=== PATIENT | female | born 1995 | race Hispanic/Latino ===

== ENCOUNTER 2024-01-24 21:34 | Emergency (ER) | payer MEDICAID ==
[~2024-01-24] VITALS: Ht 160 cm; Wt 85.7 kg
[2024-01-24 21:46] LABS: BASOPHILS # (AUTO) 0.08 K/uL (0.00-0.20); BASOPHILS % (AUTO) 0.8 % (0.0-5.0); EOSINOPHILS # (AUTO) 0.19 K/uL (0.00-0.70); EOSINOPHILS % (AUTO) 1.9 % (0.0-8.0); IMMATURE GRANULOCYTE ABSOLUTE 0.08 K/uL (0-1); LYMPHOCYTES # (AUTO) 2.9 K/uL (1.0-4.8); LYMPHOCYTES % (AUTO) 28.7 % (21.0-51.0); MEAN CORPUSCULAR HEMOGLOBIN 32.2 pg (27.0-33.0); MEAN CORPUSCULAR HGB CONC 33.2 g/dL (32.0-36.0); MEAN CORPUSCULAR VOLUME 96.9 fL (79-99); MONOCYTES # (AUTO) 0.5 K/uL (0.1-1.0); MONOCYTES % (AUTO) 5.1 % (3.0-13.0); NEUTROPHILS # (AUTO) 6.4 K/uL (1.8-7.7); NEUTROPHILS % (AUTO) 62.7 % (40.0-77.0); PLATELET COUNT (AUTO) 184 K/uL (130-400); RED BLOOD CELL COUNT(AUTO) 4.23 MIL/uL (4.00-5.50); RED CELL DISTRIBUTION WIDTH 12.7 % (11.0-15.5); WHITE BLOOD COUNT (AUTO) 10.2 K/uL (4.8-10.8)
[2024-01-24 21:58] LABS: CREATININE 0.8 mg/dL (0.5-1.0)
--- NOTE | 2024-01-24 23:00 | ERN ---
General Chief Complaint: Chest Pain Stated Complaint: CHEST PAIN Time Seen by MD: 21:37 Source: patient History of Present Illness Initial Comments In his a 28-year-old female coming in to be evaluated for chest pressure. Patient states that the chest pressure has been on and off since she was discharged in the hospital couple of days ago. She states that she is her new and has not been able to rest completely. She also states he was concerned because they advised her at hospital before she was discharged that if she had any chest pain to follow up at the nearest ER for evaluation of preeclampsia. Patient is not having any headaches or pedal edema or any other complaints besides chest pressure that presents on and off every 20-30 minutes. Allergies: Coded Allergies: No Known Allergies (Unverified Allergy, Unknown, 01/24/24) Past Medical History Past Medical History: No Pertinent History Past Surgical History: None ROS Dictation CONSTITUTIONAL: No chills, no fever, no weakness, no diaphoresis, no malaise. HEAD/FACE: No signs of trauma. EENT: No eye pain, no blurred vision, no tearing, no double vision, no ear p ain, no ear discharge, no nose pain, no nasal congestion, no throat pain, no throat swelling, no mouth pain. RESPIRATORY: No cough, no orthopnea, no SOB, no stridor, no wheezing. CARDIOVASCULAR: No chest pain, no edema, no palpitations, no syncope. GASTROINTESTINAL/ABDOMINAL: No abdominal pain, no constipation, no diarrhea, no nausea, no vomiting. GENITOURINARY: No abnormal discharge, no dysuria, no frequent urination, no hematuria. No complaints of pain in the genitals. MUSCULOSKELETAL: No back pain, no gout, no joint pain, no joint swelling, no muscle pain, no muscle stiffness, no neck pain. INTEGUMENTARY: No change in color, no change in hair/nails, no dryness, no lesion, no lumps, no rash. NEUROLOGICAL/PSYCH: No anxiety, not depressed, no emotional problem, no headache, no numbness, no pre-existing deficit, no history of seizures, no tremors, no weakness. HEMATOLOGIC/LYMPHATIC: Not anemic, no history of blood clots, no apparent bleeding, no bruising, glands not swollen. All Systems Negative, Except as Noted. Physical Exam Physical Exam Dictation VITAL SIGNS: Reviewed. GENERAL APPEARANCE: Alert, oriented x3, no acute distress, obese. HEAD AND FACE: Non-traumatic. EYES: PERRL, pink conjunctivas, eyelid no trauma, anterior chamber clear. EARS: Pinnas intact and no signs of trauma or erythema. Ear canals clear and no discharge. TMs no erythema. NOSE: No discharge, no bleeding. OROPHARYNX: Mouth normal, teeth no caries, tongue pink. Pharynx clear, no erythema. Tonsils no exudates, no abscesses noted. Mucous membrane moist. NECK: Supple, non-tender, no thyromegaly, no masses, no JVD, no bruits. BREAST: Deferred. CHEST: No tenderness, no crepitus, no paradoxical movement, no retractions. LUNGS: Clear, well-ventilated, symmetric, no rales, no wheezing, no rhonchi, no stridor, good breath sounds bilaterally. HEART: Regular rate, regular rhythm, no murmur, no gallops. VASCULAR: No peripheral edema. ABDOMEN: Soft, positive bowel sounds, nondistended, no guarding, nontender, no rebound, no masses no hepatomegaly, no splenomegaly, no Christopher's sign, no hernias. RECTAL: Deferred. GENITAL: Deferred. NEUROLOGICAL: Normal speech, gross motor function intact, gross sensory function intact. MUSCULOSKELETAL: Neck nontender, full range of motion, back nontender, full range of motion. EXTREMITIES: Nontender, full range of motion. SKIN: Color pink, dry, no turgor, no rash, no lacerations, no abrasions, no contusions. LYMPHATICS: Deferred. Results Laboratory and Microbiology Lab and Micro Result Laboratory Tests Test 01/24/24 21:40 01/24/24 23:24 White Blood Count 10.2 K/uL (4.8-10.8) Red Blood Count 4.23 MIL/uL (4.00-5.50) Hemoglobin 13.6 g/dL (12.0-16.0) Hematocrit 41.0 % (36-48) Mean Corpuscular Volume 96.9 fL (79-99) Mean Corpuscular Hemoglobin 32.2 pg (27.0-33.0) Mean Corpuscular Hemoglobin Concent 33.2 g/dL (32.0-36.0) Red Cell Distribution Width 12.7 % (11.0-15.5) Platelet Count 184 K/uL (130-400) Mean Platelet Volume 10.2 fL (7.5-10.5) Immature Granulocyte % (Auto) 0.8 % (0-1) Neutrophils (%) (Auto) 62.7 % (40.0-77.0) Lymphocytes (%) (Auto) 28.7 % (21.0-51.0) Monocytes (%) (Auto) 5.1 % (3.0-13.0) Eosinophils (%) (Auto) 1.9 % (0.0-8.0) Basophils (%) (Auto) 0.8 % (0.0-5.0) Neutrophils # (Auto) 6.4 K/uL (1.8-7.7) Lymphocytes # (Auto) 2.9 K/uL (1.0-4.8) Monocytes # (Auto) 0.5 K/uL (0.1-1.0) Eosinophils # (Auto) 0.19 K/uL (0.00-0.70) Basophils # (Auto) 0.08 K/uL (0.00-0.20) Absolute Immature Granulocyte (auto 0.08 K/uL (0-1) Nucleated Red Blood Cells 0.0 % (0.0-0.19) Sodium Level 139 mmol/L (136-145) Potassium Level 4.0 mmol/L (3.5-5.1) Chloride Level 105 mmol/L (101-111) Carbon Dioxide Level 27 mmol/L (21-32) Blood Urea Nitrogen 11 mg/dL (7-18) Creatinine 0.8 mg/dL (0.5-1.0) Glomerular Filtration Rate Calc 102 mL/min (>90) Random Glucose 88 mg/dL (70-105) Total Calcium 9.2 mg/dL (8.5-10.1) Troponin I High Sensitivity 5 ng/L (4-50) Urine HCG, Qualitative NEGATIVE (NEGATIVE) Labs Reviewed?: Yes EKG/XRAY/US/CT/MRI EKG Comment 01/24/2024 time 9:32 p.m. Ventricular rate [address] wave elevation or depression Sinus rhythm X-RAY Comment chest xray- nad MDM MDM: Differential diagnosis: Anxiety, acid reflux, chest pain Rationale: Tests considered and ordered secondary to shared decision making include: Previous outside records reviewed: Old ER visits. Risk of complication and/or morbidity or mortality of patient management: None Medications-Per medication reconciliation Need for hospitalization: Patient does not meet criteria for hospitalization. Need for emergency major/minor surgery: No There are no social concerns with this patient. Prescription drug management Prescriptions will include symptomatic care Patient's prior external medical records from other ER visits were reviewed by me as indicated. Prior testing and results from previous visits were reviewed. Prior tests were taken into account with medical decision making and resource utilization, independent historian/historians were used to obtain complete medical history. I independently interpreted the test that were performed, results were reviewed by me and considered findings on radiology if ordered. Medical management and examination interpretation discussions were had by me with other qualified healthcare professionals as indicated for the patient's care. 28-year-old female coming in to be evaluated for chest pressure. She states that she was educated by nursing staff in labor and delivery floor if she had any chest pressure to come in to be evaluated in the ER as this could be a sign of preeclampsia. Patient was evaluated for chest pain Maalox was given she states her symptoms completely subsided. Patient will be discharged with a diagnosis of anxiousness with acid reflux cardiac workup negative for acute findings. ED Course Orders Procedure Category Date Status Time Cbc With Differential LAB 01/24/24 Complete 21:38 Basic Metabolic Panel LAB 01/24/24 Complete 21:38 Troponin I High LAB 01/24/24 Complete Sensitivity 21:38 ,Urine Test LAB 01/24/24 Complete 21:38 Chest 1vw RAD 01/24/24 Taken 21:38 12 Lead Ekg Tracing- EKG 01/24/24 Logged Technical 21:40 Ondansetron 4mg Inj PHA 01/24/24 Complete (Zofran 4mg Inj) 22:30 Lidocaine Hcl 2% PHA 01/24/24 Complete Viscous (Lidocaine Hcl 22:30 Mag/Alum/Simeth 30ml PHA 01/24/24 Complete (Maalox Plus 30ml) 22:30 Pantoprazole 40mg Inj PHA 01/24/24 Complete (Protonix 40mg Inj 22:30 Current Medications Medications (Trade) Dose Ordered Sig/Neil Route PRN Reason Start Time Stop Time Status Last Admin Dose Admin Al Hydroxide/Mg Hydroxide (MAALox PLUS 30ML) 30 ml ONCE ONCE PO 01/24/24 22:30 01/24/24 22:31 DC 01/24/24 23:10 Lidocaine HCl (Lidocaine HCl 2% Viscous) 10 ml ONCE ONCE PO 01/24/24 22:30 01/24/24 22:31 DC Ondansetron HCl (zoFRAN 4MG INJ) 4 mg ONCE ONCE IVP 01/24/24 22:30 01/24/24 22:31 DC 01/24/24 23:05 Pantoprazole Sodium (PROTonix 40MG INJ) 40 mg ONCE ONCE IVP 01/24/24 22:30 01/24/24 22:31 DC 01/24/24 23:05 Vital Signs Date Time Temp Pulse Resp B/P (MAP) Pulse Ox O2 Delivery O2 Flow Rate FiO2 01/24/24 21:42 98.1 61 14 145/83 99 Room Air* 0 21 01/24/24 21:35 98.4 64 16 148/83 97 Room Air 0 DX & DISP Disposition: Discharge Departure Impression: Primary Impression: Acid reflux Additional Impression: Anxiety Condition: Stable Scripts Pantoprazole Sodium (Protonix) 40 Mg Ectab 40 MG PO DAILY for 30 Days, #30 TAB.EC Prov: REBEKAH GARCIA MD 01/24/24 Additional Instructions: FOLLOW-UP WITH PRIMARY CARE PROVIDER IN 1 TO 2 DAYS. TAKE MEDICATIONS DIRECTED HERE IN THE EMERGENCY ROOM. OKAY TO CONTINUE HOME MEDICATIONS UNLESS OTHERWISE DISCUSSED DURING YOUR VISIT IN THE EMERGENCY ROOM TODAY. RETURN TO YOUR NEAREST EMERGENCY ROOM IF SYMPTOMS WORSEN OR IF THERE IS NO IMPROVEMENT. CALL 911 IF YOU NEED IMMEDIATE ASSISTANCE. TAKE TYLENOL [id number] NEEDED AND IF NO CONTRAINDICATIONS ARE PRESENT. INCREASE ORAL HYDRATION. A WOUND CULTURE OR URINE CULTURE WAS ORDERED HERE IN THE EMERGENCY ROOM DEPARTMENT PLEASE FOLLOW-UP WITH PRIMARY CARE PROVIDER AND ADVISE THEM TO GET REPEAT PORTS FROM OUR FACILITY. IF YOU HAD ANY FRANK WRAP/SPLINTS THAT WERE APPLIED HERE, PLEASE DO NOT REMOVE THEM UNTIL YOU SEE YOUR PRIMARY CARE OR SPECIALTY. Referrals: Referrals: SELF,REFERRAL (PCP) PHYLLIS SHEFFIELD MD Time of Disposition: 23:56 REBEKAH GARCIA MD Jan 24, 2024 23:00
[2024-01-24] MEDS: LIDOCAINE HCL 2% VISCOUS 15 ML UDCUP PO ONE (23:05)
[2024-01-24] MEDS: PANTOPrazole 40 MG/VIAL IVP ONE (23:05)
[2024-01-24] MEDS: MAG/ALUM/SIMETH 30 ML UDCUP PO ONE (23:05)
[2024-01-24] MEDS: ondanSETRON 4MG INJ IVP ONE (23:05)
[2024-01-24] MEDS ORDERED: PANT40TA55 PO (23:56)
[2024-01-25 00:11] VITALS: BP 126/73; PULSE 66; RESP 16; TEMP 98; O2SAT 98
--- NOTE | 2024-01-25 06:49 | EKG ---
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
--- NOTE | 2024-01-25 08:33 | HMCIMG ---
CHEST 1VW REASON: chest pain COMPARISON: None. FINDINGS: Single view of the chest was obtained. Lungs are clear. Heart size is normal. There is no pulmonary vascular congestion. Mediastinum and bony thorax appear unremarkable. IMPRESSION: 1. Normal single view chest x-ray.
== END 2024-01-25 00:41 | disposition home or self-care (01) ==
LOC: EDH 21:34
DX: K21.9 Gastro-esophageal reflux disease without esophagitis (principal); R07.89 Other chest pain; F41.9 Anxiety disorder, unspecified
CPT/HCPCS: 99285; 96374; 71045; 96375; 84484; 80048; 85025; 81025; 36415; 93005; J2405; J2470